=== PATIENT | male | born 1990 | race Caucasian/White ===

== ENCOUNTER 2017-03-20 13:28 | Emergency (ER) | payer BC ==
[2017-03-20] MEDS ORDERED: Sodium Chloride 0.9% 10 ML Syringe FLUSH PRN (13:37)
[2017-03-20] MEDS ORDERED: LORazepam 2 MG/ML MDV IVPUSH ONE (14:06)
[2017-03-20] MEDS ORDERED: Sodium Chloride 0.9% 1,000 ML IV ONE (14:06)
--- NOTE | 2017-03-20 14:13 | EDM.PDOCBH ---
ED HPI GENERAL MEDICAL PROBLEM - General Chief Complaint: Drug or Alcohol Abuse Stated Complaint: DETOX Time Seen by Provider: 03/20/17 13:44 Source of Information: Reports: Patient History Limitations: Reports: No Limitations - History of Present Illness INITIAL COMMENTS - FREE TEXT/NARRATIVE: Patient is a 27-year-old male who presents to the ED withdrawing from kratom which is a [id number] herbal substance with opioid properties. States he' s been taking this for the past year, utilizing 10 g daily. Stopped using this past Monday and started having withdraw symptoms. States he has been very anxious. He has a history of heroin use along with multiple other recreational drugs. Alcohol use is sporadic. States he drank 2 beers this past Monday. He is wishing to be admitted for detox and treatment. He was seen over at [facility] today with recommendations for admission. I did speak with the Drug and Alcohol Counselor, Alfredo. He is concerned about withdrawing from the kratum. States it has properties similar to opiods/heroin with similar detox symptoms as heroin. Thus requests admission for detox. Patient last used heroin approximately 1.5 years ago. Denies recreational drug use recently. Currently denies any chest pain, SOB, nausea/vomiting, abdominal pain , diaphoresis, restless legs, hallucinations, suicidal ideations, homicidal ideations, or any additional complaints. - Related Data Allergies Allergy/AdvReac Type Severity Reaction Status Date / Time No Known Allergies Allergy Verified 03/20/17 13:38 Home Meds: Home Meds LORazepam [Ativan] 1 mg PO ASDIRECTED #18 tablet 03/20/17 [Rx] Ondansetron [Zofran ODT] 4 mg PO Q6H PRN #20 tab.dis 03/20/17 [Rx] Past Medical History Musculoskeletal History: Reports: Fracture Other Musculoskeletal History: ankle Psychiatric History: Reports: Addiction Social & Family History - Family History Family Medical History: Noncontributory Psychiatric: Reports: Other (See Below) Other Psychiatric Family History: Adiction - Tobacco Use Smoking Status *Q: Current Every Day Smoker Years of Tobacco use: 8 Packs/Tins Daily: 1 - Caffeine Use Caffeine Use: Reports: Coffee, Energy Drinks, Soda, Tea - Recreational Drug Use Recreational Drug Use: Yes Recreational Drug Type: Reports: Heroin, Marijuana/Hashish, Other (see below) Other Recreational Drug Type: Stewart Recreational Drug Use Frequency: Daily ED ROS GENERAL - Review of Systems Review Of Systems: ROS reveals no pertinent complaints other than HPI. ED EXAM, BEHAVIORAL HEALTH - Physical Exam Exam: See Below Exam Limited By: No Limitations General Appearance: Alert, WD/WN, Anxious Ears: Hearing Grossly Normal Nose: Normal Inspection Throat/Mouth: Normal Voice, No Airway Compromise Neck: Normal Inspection, Supple Respiratory/Chest: No Respiratory Distress, Lungs Clear, Normal Breath Sounds, No Accessory Muscle Use Cardiovascular: Normal Peripheral Pulses, Regular Rate, Rhythm GI/Abdominal: Normal Bowel Sounds, Soft, Non-Tender, No Organomegaly, No Distention Back Exam: Normal Inspection Extremities: Normal Inspection Neurological: Alert, Normal Mood/Affect, CN II-XII Intact, Normal Cognition, No Motor/Sensory Deficits, Oriented x 3 Psychiatric: Alert, Normal Affect, Normal Cognition, Normal Mood Skin Exam: Warm, Dry, Intact, Normal color COURSE, BEHAVIORAL HEALTH COMP - Course Vital Signs: Last Vital Signs Temp 97.9 F 03/20/17 13:35 Pulse 66 03/20/17 13:35 Resp 16 03/20/17 13:35 BP 132/64 03/20/17 13:35 Pulse Ox 98 03/20/17 13:35 Orders, Labs, Meds: Active Orders 24 hr Category Date Time Status EKG Documentation Completion [RC] STAT Care 03/20/17 13:37 Active Peripheral IV Care [RC] . DIRECTED Care 03/20/17 13:37 Active Peripheral IV Insertion Adult [OM.PC] Stat Oth 03/20/17 13:37 Ordered Laboratory Tests 03/20/17 03/20/17 03/20/17 Range/Units 13:50 13:50 14:54 WBC 7.43 (4.23-9.07) K/mm3 RBC 4.74 (4.63-6.08) M/mm3 Hgb 14.2 (13.7-17.5) gm/L Hct 42.8 (40.1-51.0) % MCV 90.3 (79.0-92.2) fl MCH 30.0 (25.7-32.2) pg MCHC 33.2 (32.2-35.5) g/dl RDW Std Deviation 43.5 (35.1-43.9) fL Plt Count 268 (163-337) K/mm3 MPV 9.2 L (9.4-12.3) fl Neut % (Auto) 63.8 (34.0-67.9) % Lymph % (Auto) 25.7 (21.8-53.1) % [place] % (Auto) 7.3 (5.3-12.2) % Eos % (Auto) 2.4 (0.8-7.0) Baso % (Auto) 0.5 (0.1-1.2) % Neut # (Auto) 4.74 (1.78-5.38) K/mm3 Lymph # (Auto) 1.91 (1.32-3.57) K/mm3 [place] # (Auto) 0.54 (0.30-0.82) K/mm3 Eos # (Auto) 0.18 (0.04-0.54) K/mm3 Baso # (Auto) 0.04 (0.01-0.08) K/mm3 Sodium 144 (136-145) mEq/L Potassium 4.2 (3.5-5.1) mEq/L Chloride 107 (98-107) mEq/L Carbon Dioxide 27 (21-32) mEq/L Anion Gap 14.2 (5-15) BUN 23 H (7-18) mg/dL Creatinine 0.8 (0.7-1.3) mg/dL Est Cr Clr Drug Dosing 125.68 mL/min Estimated GFR (MDRD) > 60 (>60) mL/min BUN/Creatinine Ratio 28.8 H (14-18) Glucose 106 (74-106) mg/dL Calcium 8.5 (8.5-10.1) mg/dL Total Bilirubin 0.3 (0.2-1.0) mg/dL AST 13 L (15-37) U/L ALT 23 (16-63) U/L Alkaline Phosphatase 97 (46-116) U/L Total Protein 6.8 (6.4-8.2) g/dl Albumin 3.8 (3.4-5.0) g/dl Globulin 3.0 gm/dL Albumin/Globulin Ratio 1.3 (1-2) TSH 3rd Generation 1.338 (0.358-3.74) uIU/mL Urine Opiates Screen Negative (NEGATIVE) Ur Buprenorphine Scrn Negative (NEGATIVE) Ur Oxycodone Screen Negative (NEGATIVE) Urine Methadone Screen Negative (NEGATIVE) Ur Propoxyphene Screen Negative (NEGATIVE) Ur Barbiturates Screen Negative (NEGATIVE) Ur Tricyclics Screen Negative (NEGATIVE) Ur Phencyclidine Scrn Negative (NEGATIVE) Ur Amphetamine Screen Negative (NEGATIVE) U Methamphetamines Scrn Negative (NEGATIVE) U Benzodiazepines Scrn Negative (NEGATIVE) U Cocaine Metab Screen Negative (NEGATIVE) U Marijuana (THC) Screen Presumptive positive H (NEGATIVE) Ethyl Alcohol 0.00 (0.00) gm% Medications Discontinued Medications Generic Name Dose Route Start Last Admin Trade Name Freq PRN Reason Stop Dose Admin Sodium Chloride 1,000 mls @ 150 mls/hr 03/20/17 14:06 03/20/17 14:48 Normal Saline IV 03/20/17 20:45 150 mls/hr ONETIME ONE Administration Lorazepam 0.5 mg 03/20/17 14:06 03/20/17 14:49 Ativan IVPUSH 03/20/17 14:07 0.5 mg ONETIME ONE Administration Lorazepam 0 mg 03/20/17 17:15 Ativan IVPUSH ASDIRECTED ALLEN Protocol Lorazepam 1 mg 03/20/17 17:33 03/20/17 17:42 Ativan PO 03/20/17 17:34 1 mg ONETIME ONE Administration Sodium Chloride 10 ml 03/20/17 13:37 03/20/17 14:49 Saline Flush FLUSH 10 ml ASDIRECTED PRN Administration Keep Vein Open Re-Assessment/Re-Exam: IV established with NS and Ativan 0.5 mg IVP. Initial labs and studies include CBC, chem 14, urine drug tox, serum EtOH, TSH, and EKG. Labs reviewed: CBC, chem 14, TSH, serum EtOH all normal. Awaiting urine drug tox. Urine drug tox positive for THC. Serum EtOH 0.00. [id number] Amos power generation technician hospitalist. She will have director of social work speak with the patient about admission. [id number] Amos in the E.D. requested patient speak with Williams Pillai. Williams Pillai has been called with message left. Patient meets admission criteria [place] [facility] [id number] Amos. Will speak with director of social work in arranging treatment inpatient at a treatment facility. Unclear patient will be admitted or not. Spoke with the patient he feels okay to go home this evening. He is scheduled to see Alfredo with Alcohol Drug Counselor at [facility] tomorrow. Departure - Departure Time of Disposition: 18:36 Disposition: Home, Self-Care 01 Condition: Good Clinical Impression: Drug dependence Drug withdrawal Qualifiers: Substance type: other psychostimulant Qualified Code(s): F15.93 - Other stimulant use, unspecified with withdrawal - Discharge Information Prescriptions: LORazepam [Ativan] 1 mg PO ASDIRECTED #18 tablet Ondansetron [Zofran ODT] 4 mg PO Q6H PRN #20 tab.dis PRN Reason: Nausea/Vomiting Instructions: Chemical Dependency, Finding Treatment for Addiction Referrals: [facility] [Outside] [facility] [Outside] Additional Instructions: Please take the Ativan and Zofran as prescribed. Push the fluids. Refrain from utilization of any recreational drugs, alcohol, or kratom. Follow up with Alfredo at [facility]. In addition you can go to [facility] between 8-10 tomorrow morning for evaluation and determine treatment course. Another option is speaking with Williams Pillai for outpatient treatment. As discussed return to the E.D. for any new or worsening symptoms. - My Orders Last 24 Hours: My Active Orders 03/20/17 13:37 EKG Documentation Completion [RC] STAT Peripheral IV Care [RC] . DIRECTED Peripheral IV Insertion Adult [OM.PC] Stat - Assessment/Plan Last 24 Hours: My Active Orders 03/20/17 13:37 EKG Documentation Completion [RC] STAT Peripheral IV Care [RC] . DIRECTED Peripheral IV Insertion Adult [OM.PC] Stat
[2017-03-20] MEDS ORDERED: LORazepam 2 MG/ML MDV IVPUSH SCH (17:15)
[2017-03-20] MEDS ORDERED: LORazepam 1 MG Tab PO ONE (17:33)
== END 2017-03-20 19:05 | disposition home or self-care (01) ==
LOC: JD.ED 13:28
DX: F15.23 Other stimulant dependence with withdrawal (principal); Z79.899 Other long term (current) drug therapy; F12.10 Cannabis abuse, uncomplicated; F17.210 Nicotine dependence, cigarettes, uncomplicated
CPT/HCPCS: 36415; 80053; 80306; 84443; 85025; 93005; 96361; 96374; 99284; A9270; G0480; J2060; J7040; J7050

== ENCOUNTER 2018-07-18 23:46 | Emergency (ER) | payer BC ==
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
== END 2018-07-19 00:30 ==
LOC: JD.ED 23:46
DX: F19.10 Other psychoactive substance abuse, uncomplicated (principal); F10.129 Alcohol abuse with intoxication, unspecified; F17.210 Nicotine dependence, cigarettes, uncomplicated; F41.9 Anxiety disorder, unspecified; F32.9 Major depressive disorder, single episode, unspecified; Z79.899 Other long term (current) drug therapy
CPT/HCPCS: 99282; 99284